=== PATIENT | female | born 1970 | race Caucasian/White ===

== ENCOUNTER 2024-02-16 10:28 | Outpatient (OUT) | payer OTHER, SELFPAY ==
--- NOTE | 2024-02-16 | XR_ITS ---
[address] [address] Patient Name: SUKHI DIALLO MRN: [id number] date: 1970 Sex: F Assigned Patient Location: Current Patient Location: Accession/Order Number: [id number] Exam Date: 02/16/2024 10:28 Report Date: 02/17/2024 08:28 At the request of: JOSÉ WALSH Procedure: XR ankle RT min 3V PROCEDURE: XR foot RT min 3V, XR ankle RT min 3V COMPARISON: 11/07/2021 HISTORY: RIGHT FOOT PAIN FINDINGS: BONES:No acute fracture or dislocation. Stable fusion first metatarsal-phalangeal joint with dorsal plate and screws. No mechanical failure. Remote osteotomy with 2 screws head of the second metatarsal. Fusion of the second proximal interphalangeal joint SOFT TISSUES:Negative. No visible soft tissue swelling. EFFUSION:None visible. OTHER: Negative. XR/XR ankle RT min 3V IMPRESSION: Stable exam. No interval change Electronically authenticated by: CHARLES ROGER Date: 02/17/2024 08:28
--- NOTE | 2024-02-16 | XR_ITS ---
[address] [address] Patient Name: SUKHI DIALLO MRN: [id number] date: 1970 Sex: F Assigned Patient Location: Current Patient Location: Accession/Order Number: [id number] Exam Date: 02/16/2024 10:28 Report Date: 02/17/2024 08:28 At the request of: JOSÉ WALSH Procedure: XR foot RT min 3V PROCEDURE: XR foot RT min 3V, XR ankle RT min 3V COMPARISON: 11/07/2021 HISTORY: RIGHT FOOT PAIN FINDINGS: BONES:No acute fracture or dislocation. Stable fusion first metatarsal-phalangeal joint with dorsal plate and screws. No mechanical failure. Remote osteotomy with 2 screws head of the second metatarsal. Fusion of the second proximal interphalangeal joint SOFT TISSUES:Negative. No visible soft tissue swelling. EFFUSION:None visible. OTHER: Negative. XR/XR foot RT min 3V IMPRESSION: Stable exam. No interval change Electronically authenticated by: CHARLES ROGER Date: 02/17/2024 08:28
== END 2024-02-16 10:29 | disposition home or self-care (01) ==
LOC: EC 10:28
PROVIDERS: Visit Provider Podiatrist Foot & Ankle Surgery
DX: M25.571 Pain in right ankle and joints of right foot (principal)
CPT/HCPCS: 73610; 73630